=== PATIENT | male | born 1960 | race Two or more races ===

== ENCOUNTER 2024-10-26 10:09 | Outpatient (AMB) | payer MEDICAID, SELFPAY ==
[2024-10-26 10:31] VITALS: BP 126/80; PULSE 78; RESP 18; TEMP 36.4; O2SAT 94; BMI 40.0
--- NOTE | 2024-10-26 10:31 | ORTHONT_ITS ---
Vital signs 10/26/24 10:31 Height 1.68 m Height Method Stated Weight 112.973 kg Weight Measurement Method Standing Scale BMI 40.0 BP 126/80 Blood Pressure Source Automatic Cuff Blood Pressure Location Right Upper Arm Position Sitting Respiration 18 Pulse 78 Pulse Source Monitor Temp 97.5 F Temp Source Temporal Artery Scan Pulse Oximetry (%) 94 L Oxygen Delivery Method Room Air Med/Allergies Allergies & Medications Allergies No Known Allergies Allergy (Verified 10/26/24 10:32) Medication Reconciliation meloxicam 7.5 mg tablet 7.5 mg PO BID #45 tabs 11/04/23 [Rx Confirmed 10/26/24] amlodipine 5 mg tablet 5 mg PO QDAY 08/06/24 [History Confirmed 10/26/24] atorvastatin 20 mg tablet 20 mg PO QDAY 08/06/24 [History Confirmed 10/26/24] empagliflozin 10 mg tablet (Jardiance) 10 mg PO QAM 08/06/24 [History Confirmed 10/26/24] metformin 1,000 mg tablet 1,000 mg PO QDAY 08/06/24 [History Confirmed 10/26/24] semaglutide 14 mg tablet (Rybelsus) 14 mg PO QDAY 08/06/24 [History Confirmed 10/26/24] dulaglutide 1.5 mg/0.5 mL subcutaneous pen injector (Trulicity) 1.5 mg subcut QWEEK 10/26/24 [History Confirmed 10/26/24] Exam Exam Patient is in no acute distress and is cooperative with the examination today. Breathing is nonlabored. In no respiratory distress. Bilateral extremities were evaluated and demonstrates sensation intact to light touch. Palpable pedal pulses are present. No significant edema is present. Bilateral hips were examined. The patient has no pain with log roll of the hips. Internal rotation to 30 degrees and external rotation to 30 degrees is painless. Negative FADIR. The left knee was examined. The left knee is in [varus] alignment. Range of motion from [0-115] degrees. Knee is stable to varus and valgus as well as AP translation with <5mm. Patient has a [negative] McMurrays. There is [no] pain with patellofemoral compression and [no] crepitus noted. The knee is [tender] to palpation [medially]. The right knee was also examined. The right knee is in [varus] alignment. Range of motion from [0-120] degrees. Knee is stable to varus and valgus as well as AP translation with <5mm. Patient has a [negative] McMurrays. There is [no] pain with patellofemoral compression and [no] crepitus noted. The knee is [tender] to palpation [medially]. I reviewed x-rays from [facility] from both knees. This demonstrates significant tawf-sp-odqd arthritis medially. There are significant osteophytes and quite impressive varus deformity Assessment and Plan Problem List (1) Bilateral knee pain: Status: Acute Plan: Patient is a 64-year-old male with bilateral knee pain and bilateral knee arthritis. He is failed conservative treatment. He he has tried multiple injections, anti-inflammatories, injections, and has lost 25 pounds. He still has persistent pain. We thus discussed total knee replacement is a reasonable option. While both knees have severe pain, the left knee pain hurts him more and we would for start on the left side. The nature and purpose of the total knee replacement, alternative method(s) of treatment, the material risks involved, and the possibility of complications were fully explained to the patient. The patient does NOT have any of the following contraindications to TKA: - Active infection of the knee joint, OR - Active systemic bacteremia, OR - Active skin infection or open wound at surgical site, OR - Neuropathic arthritis, OR - Severe, rapidly progressive neurological disease, OR - Severe medical condition that makes risks of surgery outweigh the potential benefit The patient was told the most common risks and complications associated with a total knee replacement include, but are not limited to: blood clots in the leg, fatal pulmonary embolism, dislocation of the prosthesis, intraoperative and postoperative fractures of the femur or tibia, infection, failure of the prosthesis or grafting materials, complications from anesthesia, reactions to blood transfusions, postoperative leg length inequality, instability of the knee replacement, nerve damage or injury, vascular injury, delayed wound healing, infection, other injury or even . In addition, there are risks associated with anesthesia given during this operation. Also, the patient was told that after undergoing a total knee replacement there may still be persistent pain or disability. The patient was informed that the success of this operation in part depends upon the mechanical devices which are going to be implanted and that these devices can fail or malfunction, and may need to be repaired or replaced and there are no guarantees as to the longevity of this device or its parts and that it or its parts could fail prematurely. The patient was also notified that during the course of surgery, there may be a need to use bone graft from donors, and that any bone graft used will be carefully screened for communicable diseases, including AIDS, hepatitis, Gelacio-Creutzfeldt, or other diseases, but despite the screening procedures, there is a small chance that they could contract one of these diseases. Finally, the patient was asked to follow completely and fully with all advice and recommended treatments, and that recovery and ultimate outcome are affected by their compliance with recommended treatment. We discussed the risks, benefits and treatment alternatives, and the patient is interested in proceeding with surgery. We will try to set this up as expeditiously as possible. (2) Bilateral primary osteoarthritis of knee: Status: Acute Office Procedures GNS Level of Care Nursing/Assessment Patient Status: Established Patient Nursing Assessment/Reassesment: Medication Reconciliation, Update PMH in EMR and Vital Signs Coordination of Care: Complex Care and Chronic Disease 1-5, Education Complex Pt/Fam, Consent,records obtained, informed consent, Results/Orders obtained and Staff clarify orders Special Needs: Language special needs Established Patient Charge Established Patient Point Assignment: 95 Established Patient Point Charge: EP Level 3 (80-115) MA Intake Visit Data Collection New Patient or Established: Established Patient (seen at [facility] within 3 years) Reason for Visit:: PRE-OPT LT TKA Seen by Clinical Staff ONLY (RN/MA): No Verbal consent obtained for Telemed visit?: No 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 Required: Yes PCP or OBGYN visit in last 3 months: Yes Hx Now: No Do You Feel Safe at Home: Yes Authorities Contacted: N/A Questionairres Past Medical History Past Medical History Have you ever been diagnosed with any of the following: Respiratory Problems Smoking: No Smoking Exposure: No Subjective Visit Visit for: follow up visit and knee Immunization / Flu Flu Vaccine in the Last 12 Months: Yes Flu Vaccine Exclusion Criteria: Already Received History of Present Illness Chief complaint: PRE-OPT LT TKA Date of 1st surgery (if applicable): 11/01/2024 Patient is a 63-year-old Male who is well-known to me. He lives in the [facility] and I previously treated him over there. He has bilateral knee pain that is [id number]. He has significant varus arthritis. He reports the last injections helped for several months and he would like new ones. He has lost about 35 pounds since we last saw him. The left knee hurts him significantly more. He has tried antiinflammatories Pain Pain level (0-10): 8 Pain duration: ALL DAY Pain location: inside (medial), outside (lateral), anterior and posterior Pain quality: sharp, dull and aching Pain timing: night and increases with activity Associated signs & symptoms: numbness, weakness and stiffness Ambulatory data Ambulatory device: none Treatments Improvement with previous injections: No Improvement with PT: No Improvement with NSAIDS: no Review of Systems Review of Systems: All systems negative unless otherwise noted in HPI.
== END 2024-10-26 10:50 | disposition home or self-care (01) ==
PROVIDERS: Supervising Provider Orthopaedic Surgery Adult Reconstructive Orthopaedic Surgery; Visit Provider Orthopaedic Surgery Adult Reconstructive Orthopaedic Surgery
DX: M25.562 Pain in left knee (principal); M25.561 Pain in right knee; M17.0 Bilateral primary osteoarthritis of knee
CPT/HCPCS: 99213; G0463

== ENCOUNTER → 2024-10-26 | Outpatient (CLI) | payer MEDICAID, SELFPAY ==
--- NOTE | 2024-10-26 13:57 | XR_ITS ---
Examination: Bilateral knees 2 views Right lateral knee left lateral knee 2 views Bilateral axial knees single view TECHNIQUE: Bilateral AP knees standing single view, bilateral PA knees standing single view 30 degrees flexion Standing right lateral knee left lateral knee 2 views Bilateral axial knees single view total 5 views Exam date and time: April 25, 2025 1410 hours INDICATIONS: Bilateral knee pain several years FINDINGS: Moderate osteopenia Advanced narrowing [id number] medial joint spaces right and left knee Advanced bilateral osteoarthritis patellofemoral joints No fracture or dislocation involving either knee IMPRESSION: Advanced narrowing [id number] medial joint spaces right and left knee Advanced bilateral osteoarthritis patellofemoral joints
--- NOTE | 2024-10-26 15:30 | XR_ITS ---
Examination: CT left lower extremity, without contrast. 2-D sagittal reconstructions. 2-D coronal reconstructions. 3-D reconstructions. Date and time of exam:October 26, 2024 1440 hours INDICATIONS: Left knee pain one year, osteoarthritis CTDI: vol (mGy):12.2 DLP: (mGycm):880 Technique: Multiple 1.25 mm axial sections of the left lower extremity without intravenous contrast have been obtained. 2-D sagittal and coronal reconstructions have been obtained. 3-D reconstructions have been obtained. Low dose protocols were performed. One or more of the following dose reduction techniques were used; automated exposure control, adjustment of the mA and/or KV according to patient size, use of iterative reconstruction technique. Findings: Mild osteopenia Mild to moderate narrowing left hip joint No left hip fracture or hip dislocation Advanced tricompartment osteoarthritis left knee, significant narrowing and osteophyte formation or joint spaces No fracture or dislocation IMPRESSION: Advanced tricompartment osteoarthritis left knee
== END | disposition home or self-care (01) ==
PROVIDERS: Referring Provider Orthopaedic Surgery Adult Reconstructive Orthopaedic Surgery; Visit Provider Orthopaedic Surgery Adult Reconstructive Orthopaedic Surgery
DX: M17.0 Bilateral primary osteoarthritis of knee (principal); M25.862 Other specified joint disorders, left knee; M25.861 Other specified joint disorders, right knee
CPT/HCPCS: 73564; 73700

== ENCOUNTER 2024-11-01 08:30 | Day surgery (SDC) | payer MEDICAID, SELFPAY ==
[2024-10-29 09:06] VITALS: BMI 40.1
[2024-10-29 10:03] LABS: Basophils % (Auto) 1 % (0-2.5); Eosinophils # (Auto) 0.3 Thou/mm3 (0.0-0.5); Eosinophils % (Auto) 4 % (0-10); Hematocrit 49.9 % (41.0-53.0); Hemoglobin 17.6 g/dL (13.5-16.0); Immature Granulocytes % (Auto) 0 % (0-0); Immature Granulocytes Auto 0.02 Thou/mm3 (0.00-0.00); Lymphocytes % (Auto) 26 % (10-50); Mean Corpuscular HGB Conc 35.3 g/dl (31.0-37.0); Mean Corpuscular Hemoglobin 31.5 pg (25.0-35.0); Mean Corpuscular Volume 89 fL (80-100); Monocytes # (Auto) 0.6 Thou/mm3 (0.0-0.8); Monocytes % (Auto) 8 % (0-12); Neutrophils # (Auto) 4.6 Thou/mm3 (1.8-7.7); Neutrophils % (Auto) 61 % (37-80); Nucleated Red Blood Cell % 0 /100 WBC (0); Platelet Count 182 Thou/mm3 (140-440); Red Blood Count 5.59 Miln/mm3 (4.50-5.90); White Blood Count 7.5 Thou/mm3 (3.8-10.6)
[2024-10-29 10:12] LABS: Alanine Aminotransferase 37 U/L (10-49); Albumin, Serum 5.1 gm/dL (3.4-4.8); Albumin/Globulin Ratio 1.9 (1.2-2.2); Alkaline Phosphatase 90 U/L (46-116); Anion Gap 8 (7-16); Aspartate Amino Transferase 21 U/L (0-34); BUN/Creatinine Ratio 17 Ratio (12-20); Bilirubin,Total 2.9 mg/dL (0.3-1.2); Blood Urea Nitrogen 20 mg/dL (9-23); Calcium 9.8 mg/dL (8.3-10.6); Calcium (Corrected) 9.8 mg/dL (8.5-10.1); Carbon Dioxide 27.7 mMol/L (20.0-31.0); Chloride 103 mMol/L (98-107); Creatinine (Component) 1.2 mg/dL (0.6-1.3); Estimated Creatinine Clearance 73.4 mL/min (>60); Globulin 2.7 gm/dL (2.3-3.5); Glucose 105 mg/dL (74-106); INR 1.1 (0.9-1.3); Osmolality,Calculated 280 (275-295); Partial Thromboplastin Time 28.3 Seconds (22.0-36.0); Potassium 4.4 mMol/L (3.4-5.1); Prothrombin Time 11.7 Seconds (9.0-12.2); Sodium 139 mMol/L (136-145); Total Protein 7.8 gm/dL (5.7-8.2); eGFR > 60 See Note
--- NOTE | 2024-10-29 15:01 | SUR.PREOP ---
Cardiac records reviewed with Dr Araya.
[2024-11-01] VITALS (19 sets, daily range): BP systolic 118–165; BP diastolic 68–85; PULSE 82–103; RESP 12–24; TEMP 36.1–36.6; O2SAT 93–96; BMI 40.3; BMI 40.1
[2024-11-01] MEDS: RINGERS LACTATED 1000 ML 1,000 ML 20 ML IV (09:32)
[2024-11-01] MEDS: PREGABALIN 75 MG CAPSULE PO (09:33)
[2024-11-01] MEDS: MELOXICAM 7.5 MG TABLET PO (09:35)
[2024-11-01] MEDS: ACETAMINOPHEN 325 MG TABLET 650 MG PO ×2 (09:36→22:50)
--- NOTE | 2024-11-01 12:04 | SUR.OPER ---
Daughter updated on case status/progress via phone by Jenni LAURA at approx. 1205.
--- NOTE | 2024-11-01 12:31 | ESOP_ITS ---
Date of Procedure 11/01/24 Pre Op Diagnosis left knee osteoarthritis Post Op Diagnosis left knee osteoarthritis Procedure left total knee replacement Findings full thickness cartilage loss and osteophytes Procedure Description Indication: The patient is a 64 year old who has a long history of left knee pain. X-rays show degenerative arthritis involving the knee. Over the past several years the patient has had increasing pain, progressive limitation in function. He has failed conservative measures including activity modification, physical therapy, injections, anti-inflammatories, and assistive devices. After a lengthy discussion of the risks and benefits, the patient presents now for total knee replacement. The nature and purpose of the total knee replacement, alternative method(s) of treatment, the material risks involved, and the possibility of complications were fully explained to the patient. The patient was told the most common risks and complications associated with a total knee replacement include, but are not limited to blood clots in the leg, fatal pulmonary embolism, dislocation of the prosthesis, intraoperative and postoperative fractures of the femur or tibia, infection, failure of the prosthesis or grafting materials, complications from anesthesia, reactions to blood transfusions, postoperative leg length inequality, instability of the knee replacement, nerve damage or injury, vascular injury, delayed wound healing, infections, other injury or even . In addition, there are risks associated with anesthesia given during this operation, temporary or permanent numbness on the skin lateral to the incision can be a complication unique to total knee surgery, and kneeling can be painful after knee replacement surgery. Also, the patient was told that after undergoing a total knee replacement there may still be pain or disability. We discussed with the patient that we will be using a robot-assisted technology. We discussed that there is a possibility of converting to manual instrumentation. The patient was informed that the success of this operation in part depends upon the mechanical devices which are going to be implanted and that these devices can fail or malfunction, and may need to be repaired or replaced and there are no guarantees as to the longevity of this device or its part and that it or its parts could fail prematurely. Finally, the patient was asked to follow completely and fully with all advice and recommended treatments, and that recovery and ultimate outcome are affected by their compliance with recommended treatment. Surgical technique: Patient was marked and consented in the pre-operative area. The patient was brought to the operating room and placed on the operating table in a supine position. Prior to positioning, a timeout procedure was performed between the surgeon, the anesthesiologist, and the nursing staff where the patient and the operative side were identified and confirmed. After adequate general anesthetic was obtained, the left lower extremity was prepped and draped in the usual sterile fashion. A weight based dose of Cefazolin were administered within 1 hour prior to incision. The robot was preregistered and calirated before the incision. The extremity was exsanguinated with an esmarch badge and tourniquet inflated to 250mmHg. A midline incision was made. A median parapatellar arthrotomy was made. The patella was subluxed laterally. A medial release was performed to expose the medial tibia. His femoral and tibial pins were placed through an intra incisional manner for both cases. Every effort was made to ensure that the distalmost aspect of the pin was hung in the second cortex. The arrays were then tightened several times to ensure that it was fixed for the remainder of the case. Both femoral and tibial checkpoints were then placed. We then went through the registration process of the bone. We then assessed the knee deformity and attempted to correct it. We also used the robot to aid in judging laxity in both extension and flexion. Final based on laxity and alignment we changed the preoperative assessment to obtain proper proper implant positioning and to correct deformity. Attention was then placed to the tibia. We made a tibial cut using the robot ensuring that both the MCL and the patella tendon were protected with retractors. We then went to the femur and made the posterior cut followed by the anterior cut and the anterior chamfer. The bone was then removed and we made a distal femur cut and a posterior chamfer cut. We verified all cuts. A trial reduction was performed with a size 5 femoral component and a size 5 keeled tibial component. The patella tracked centrally, and no lateral re tinacular release was necessary. The trial implants were removed. The arrays, pins, and checkpoints were all removed. We performed a verification that all pins were removed. The cut bone surfaces were lavaged. A size 5 left femoral component, a size5 keeled tibial component were impacted into position. The knee was felt to be well balanced in the sagittal and coronal plane. The final [2x12] mm cruciate- substituting articular insert was impacted into the tibial tray. The knee was brought out to full extension, flexed up to 120 degrees. It was stable to varus and valgus stress and appropriately balanced in flexion and extension. The wounds were copiously irrigated following deflation of tourniquet. The medial retinaculum was reapproximated with #1 vicryl and quill. The subcutaneous tissues were closed with 0 and 2-0 interrupted Vicryl. The skin was closed with 3-0 Monofilament V loc suture. A sterile dressing was applied. The patient was transferred to a bed and brought to recovery in stable condition. The patient tolerated the procedure well. There were no intraoperative complications. Sponge and needle counts were correct times 2. As the attending surgeon, I attest I was present and performed the entire operation. Grafts/Implants Size 5 CR Femur Size 5 Tibia 11mm poly CS Anesthesia GETA Implants jacobo Pathology / specimen None Pathology comment: none Estimated Blood Loss 150 Disposition same day Surgeon Neil Zamora MD Surgical Staff Operation Date: 11/01/24 13:00 Case Staff Anesthesiologist: Edson Araya RNleather roller: Beatriz Astudillo
--- NOTE | 2024-11-01 12:34 | XR_ITS ---
Examination: Right knee 2 views Technique one AP lateral right knee 2 views Exam date and time: November 01, 2024 at 1249 hours INDICATIONS: Postop knee replacement. FINDINGS: Total right knee arthroplasty. Satisfactory alignment Moderate osteopenia No fracture IMPRESSION: Total right knee arthroplasty with satisfactory alignment
--- NOTE | 2024-11-01 12:36 | SUR.PHASEI ---
pt received from OR in recovery bay 1. pt asleep but responds to voice, breathing unlabored on 8l oxymask, nasal area in place. v/s stable. pt dressing to left lower extremity cdi. report received from Dr. Araya and Joaquín LAURA.
--- NOTE | 2024-11-01 14:17 | SUR.PHASEII ---
pt able to tolerate oral fluids without difficulty swallowing or nausea/vomiting.
--- NOTE | 2024-11-01 17:00 | SUR.PHASEII ---
pt awake and alert, breathing unlabored on 2l nc. v/s stable. pt dressing to left lower extremity cdi. report called to Davina LAURA. pt will be transferred to room at this time.
[2024-11-02] VITALS: BP 156/82; PULSE 102; RESP 17; TEMP 36.2; O2SAT 95
[2024-11-02 04:00] VITALS: BP 108/79; PULSE 105; RESP 18; TEMP 36.5; O2SAT 96
[2024-11-02] MEDS: ACETAMINOPHEN 325 MG TABLET 650 MG PO (05:52)
[2024-11-02 08:00] VITALS: BP 148/84; PULSE 88; RESP 17; TEMP 36.6; O2SAT 95
[2024-11-02] MEDS: oxyCODONE HCL 5 MG IR TAB 10 MG PO (10:14)
[2024-11-02 12:00] VITALS: BP 157/86; PULSE 98; RESP 18; TEMP 36.8; O2SAT 94
--- NOTE | 2024-11-02 13:00 | PC.NURSE ---
Dressing removed from left knee, incision well approximated, instructions provided to care for the surgical incision, patient and family verbalized understanding.
--- NOTE | 2024-11-03 13:42 | ESPR_ITS ---
Documentation for date of: 11/03/24 POST ANESTHESIA NOTE: Patient had GETA and L adductor block for L TKA on 11/01/24. I just called and spoke with him on the phone via catalytic case operator and he denied any problems from anesthesia. He reported he did have fever yesterday and went to ER and was given medication and discharged. I educated him that fever could be sign of surgical site infection and if he continues to have fever, he should consider going to ER or follow up with his surgeon. He understood and had no further questions for me and then hung up. Edson Araya MD Anesthesia Progress Note Progress Note Most recent Vital Signs: Last Vital Signs Temp 98.3 F 11/02/24 12:00 Pulse 98 11/02/24 12:00 Resp 18 11/02/24 12:00 BP 157/86 H 11/02/24 12:00 Pulse Ox 94 L 11/02/24 12:00 O2 Del Method Room Air 11/02/24 12:00 O2 Flow Rate 2 11/02/24 12:00
== END 2024-11-02 13:10 | disposition home or self-care (01) ==
LOC: S2EX 14:21 → S3SX 17:03
PROVIDERS: Anesthesiology; Referring Provider Orthopaedic Surgery Adult Reconstructive Orthopaedic Surgery; Visit Provider Orthopaedic Surgery Adult Reconstructive Orthopaedic Surgery
PROC: (CPT 27447; principal; 2024-11-01 12:45)
DX: M17.12 Unilateral primary osteoarthritis, left knee (principal)
CPT/HCPCS: 27447; 20985; 36415; 73560; 80053; 85025; 85610; 85730; 87081; 97162; A4217; C1713; C1776; J0171; J0690; J1100; J1885; J2250; J2405; J2704; J2795; J3010; J3490; J7030; J7120; P9045; A4648; A4649; A9270; J1805

== ENCOUNTER 2024-11-16 10:55 | Outpatient (AMB) | payer MEDICAID, SELFPAY ==
--- NOTE | 2024-11-16 11:20 | ORTHONT_ITS ---
Vital signs 11/16/24 11:30 Height 1.68 m Height Method Stated Weight 109.939 kg Weight Measurement Method Standing Scale BMI 38.9 BP 143/81 H Blood Pressure Source Automatic Cuff Blood Pressure Location Left Upper Arm Position Sitting Respiration 19 Pulse 93 Pulse Source Monitor Temp 97.0 F Temp Source Temporal Artery Scan Pulse Oximetry (%) 93 L Oxygen Delivery Method Room Air Med/Allergies Allergies & Medications Allergies No Known Allergies Allergy (Verified 11/16/24 11:31) Medication Reconciliation amlodipine 5 mg tablet 10 mg PO QDAY 08/06/24 [History Confirmed 11/16/24] atorvastatin 20 mg tablet 20 mg PO QDAY 08/06/24 [History Confirmed 11/16/24] metformin 1,000 mg tablet 1,000 mg PO BID 08/06/24 [History Confirmed 11/16/24] dulaglutide 1.5 mg/0.5 mL subcutaneous pen injector (Trulicity) 1.5 mg subcut QWEEK 10/26/24 [History Confirmed 11/16/24] empagliflozin 10 mg tablet (Jardiance) 10 mg PO QAM 10/29/24 [History Confirmed 11/16/24] losartan 50 mg tablet 50 mg PO QDAY 10/29/24 [History Confirmed 11/16/24] semaglutide 14 mg tablet (Rybelsus) 14 mg PO QDAY 10/29/24 [History Confirmed 11/16/24] aspirin 81 mg tablet,delayed release 81 mg PO BID #60 tabs 11/01/24 [Rx Confirmed 11/16/24] doxycycline hyclate 100 mg tablet 100 mg PO BID #14 tabs 11/01/24 [Rx Confirmed 11/16/24] gabapentin 300 mg capsule 300 mg PO .qhs #30 caps 11/01/24 [Rx Confirmed 11/16/24] oxycodone 5 mg tablet 5 mg PO Q6H PRN pain #28 tabs 11/01/24 [Rx Confirmed 11/16/24] sennosides 8.6 mg-docusate sodium 50 mg tablet (Senna-S) 1 tab-cap PO QDAY #30 tabs 11/01/24 [Rx Confirmed 11/16/24] oxycodone 5 mg tablet 5 mg PO Q6H PRN pain #28 tabs 11/11/24 [Rx Confirmed 11/16/24] acetaminophen 500 mg tablet (Acetaminophen Extra Strength) 1,000 mg (2 x 500 mg) PO Q6H PRN pain #90 tabs 11/16/24 [Rx Confirmed 11/16/24] cyclobenzaprine 5 mg tablet 5 mg PO QHS PRN muscle spasm #60 tabs 11/16/24 [Rx Confirmed 11/16/24] Exam Exam Patient is in no acute distress and is cooperative with the examination today. Breathing is nonlabored. In no respiratory distress. Bilateral extremities were evaluated and demonstrates sensation intact to light touch. Palpable pedal pulses are present. No significant edema is present. Bilateral hips were examined. The patient has no pain with log roll of the hips. Internal rotation to 30 degrees and external rotation to 30 degrees is painless. Negative FADIR. The left knee was examined. The left knee is in [varus] alignment. Range of motion from [0-115] degrees. Knee is stable to varus and valgus as well as AP translation with <5mm. Patient has a [negative] McMurrays. There is [no] pain with patellofemoral compression and [no] crepitus noted. The knee is [tender] to palpation [medially]. The right knee was also examined. The right knee is in [varus] alignment. Range of motion from [0-120] degrees. Knee is stable to varus and valgus as well as AP translation with <5mm. Patient has a [negative] McMurrays. There is [no] pain with patellofemoral compression and [no] crepitus noted. The knee is [tender] to palpation [medially]. I reviewed x-rays from [facility] from both knees. This demonstrates significant [id number] arthritis medially. There are significant osteophytes and quite impressive varus deformity Assessment and Plan Problem List (1) Bilateral knee pain: Status: Acute Plan: Patient is a 64-year-old male with bilateral knee pain and bilateral knee arthritis. He is doing well status post left total knee replacement. She continue to work with physical therapy. We will see him with new x-rays at the next visit. (2) Bilateral primary osteoarthritis of knee: Status: Acute Office Procedures GNS Level of Care Nursing/Assessment Patient Status: Established Patient Nursing Assessment/Reassesment: Medication Reconciliation, Update PMH in EMR and Vital Signs Coordination of Care: Complex Care and Chronic Disease 1-5, Education Complex Pt/Fam, Consent,records obtained, informed consent, Lab and Imaging orders, Results/Orders obtained and Staff clarify orders Special Needs: Language special needs Established Patient Charge Established Patient Point Assignment: 110 Established Patient Point Charge: EP Level 3 (80-115) MA Intake Visit Data Collection New Patient or Established: Established Patient (seen at [facility] within 3 years) Reason for Visit:: TKA F/U Seen by Clinical Staff ONLY (RN/MA): No Pneumatic System Conveyor Operator Required: Yes PCP or OBGYN visit in last 3 months: Yes Hx Now: No Do You Feel Safe at Home: Yes Authorities Contacted: N/A Questionairres Past Medical History Past Medical History Have you ever been diagnosed with any of the following: Neurological Problems Seizures: No Cardiology Problems Hypercholesterolemia: Yes Congestive Heart Failure: No Hypertension: Yes Respiratory Problems Chronic Obstructive Pulmonary Disease (COPD): No Sleep Apnea: Yes Smoking: No Smoking Exposure: No Stomache/Intestinal Problems Hepatitis: No Obesity: Yes Genital/Urinary Problems Renal Disease: No Kidney Stones: Yes Musculoskeletal Problems Arthritis: Yes Endocrine Problems Diabetes Mellitus Type 1: No Diabetes Mellitus Type 2: Yes Psychologic Problems Depression: Yes (no meds) Anxiety: Yes Other Problems Hospitalization: Yes Shingles: No Blood Transfusions: No Blood Transfusion Reaction: No Anesthesia Reactions: No Chicken Pox: Yes Measles: Yes Cancer: No Subjective Visit Visit for: follow up visit and knee Immunization / Flu Flu Vaccine in the Last 12 Months: Yes Flu Vaccine Exclusion Criteria: Already Received History of Present Illness Chief complaint: PRE-OPT LT TKA Date of 1st surgery (if applicable): 11/01/2024 Patient is a 63-year-old Male who is well-known to me. He is doing well and has minimal pain,. Pain Pain level (0-10): 8 Pain duration: ALL DAY Pain location: inside (medial), outside (lateral), anterior and posterior Pain quality: aching Pain timing: increases with activity Associated signs & symptoms: none Ambulatory data Ambulatory device: walker Treatments Improvement with previous injections: No Improvement with PT: No Improvement with NSAIDS: no Review of Systems Review of Systems: All systems negative unless otherwise noted in HPI.
[2024-11-16 11:30] VITALS: BP 143/81; PULSE 93; RESP 19; TEMP 36.1; O2SAT 93; BMI 38.9
== END 2024-11-16 11:30 | disposition home or self-care (01) ==
LOC: HODSRG 10:55
PROVIDERS: Supervising Provider Orthopaedic Surgery Adult Reconstructive Orthopaedic Surgery; Visit Provider Orthopaedic Surgery Adult Reconstructive Orthopaedic Surgery
DX: M25.561 Pain in right knee (principal); M25.562 Pain in left knee; M17.0 Bilateral primary osteoarthritis of knee; I10 Essential (primary) hypertension; E78.00 Pure hypercholesterolemia, unspecified
CPT/HCPCS: 99213; G0463

== ENCOUNTER 2024-12-28 13:01 | Outpatient (AMB) | payer MEDICAID, SELFPAY ==
--- NOTE | 2024-12-28 13:12 | ORTHONT_ITS ---
Vital signs 12/28/24 13:13 Height 1.68 m Height Method Stated Weight 110.45 kg Weight Measurement Method Standing Scale BMI 39.1 BP 146/81 H Blood Pressure Source Automatic Cuff Blood Pressure Location Left Upper Arm Position Sitting Respiration 18 Pulse 95 Pulse Source Monitor Temp 97.2 F Temp Source Temporal Artery Scan Pulse Oximetry (%) 90 L Oxygen Delivery Method Room Air Med/Allergies Allergies & Medications Allergies No Known Allergies Allergy (Verified 12/28/24 13:14) Medication Reconciliation amlodipine 5 mg tablet 10 mg PO QDAY 08/06/24 [History Confirmed 12/28/24] atorvastatin 20 mg tablet 20 mg PO QDAY 08/06/24 [History Confirmed 12/28/24] metformin 1,000 mg tablet 1,000 mg PO BID 08/06/24 [History Confirmed 12/28/24] dulaglutide 1.5 mg/0.5 mL subcutaneous pen injector (Trulicity) 1.5 mg subcut QWEEK 10/26/24 [History Confirmed 12/28/24] empagliflozin 10 mg tablet (Jardiance) 10 mg PO QAM 10/29/24 [History Confirmed 12/28/24] losartan 50 mg tablet 50 mg PO QDAY 10/29/24 [History Confirmed 12/28/24] semaglutide 14 mg tablet (Rybelsus) 14 mg PO QDAY 10/29/24 [History Confirmed 12/28/24] aspirin 81 mg tablet,delayed release 81 mg PO BID #60 tabs 11/01/24 [Rx C onfirmed 12/28/24] doxycycline hyclate 100 mg tablet 100 mg PO BID #14 tabs 11/01/24 [Rx Confirmed 12/28/24] gabapentin 300 mg capsule 300 mg PO .qhs #30 caps 11/01/24 [Rx Confirmed 12/28/24] oxycodone 5 mg tablet 5 mg PO Q6H PRN pain #28 tabs 11/01/24 [Rx Confirmed 12/28/24] sennosides 8.6 mg-docusate sodium 50 mg tablet (Senna-S) 1 tab-cap PO QDAY #30 tabs 11/01/24 [Rx Confirmed 12/28/24] oxycodone 5 mg tablet 5 mg PO Q6H PRN pain #28 tabs 01/23/25 [Rx Confirmed 12/28/24] acetaminophen 500 mg tablet (Acetaminophen Extra Strength) 1,000 mg (2 x 500 mg) PO Q6H PRN pain #90 tabs 11/16/24 [Rx Confirmed 12/28/24] cyclobenzaprine 5 mg tablet 5 mg PO QHS PRN muscle spasm #60 tabs 12/28/24 [Rx] Exam Exam Patient is in no acute distress and is cooperative with the examination today. Breathing is nonlabored. In no respiratory distress. Bilateral extremities were evaluated and demonstrates sensation intact to light touch. Palpable pedal pulses are present. No significant edema is present. Bilateral hips were examined. The patient has no pain with log roll of the hips. Internal rotation to 30 degrees and external rotation to 30 degrees is painless. Negative FADIR. The left knee was examined. ROM 0-105,. INcision c/d/i I reviewed x-rays from [facility] from both knees. L knee xrays demonstrate a l TKA in good position and aliognment Assessment and Plan Problem List (1) Bilateral knee pain: Status: Acute Plan: Patient is a 64-year-old male with bilateral knee pain and bilateral knee arthritis. He is doing well status post left total knee replacement. he should continue to work with physical therapy. We will see him in apporxiately 3 months. (2) Bilateral primary osteoarthritis of knee: Status: Acute Office Procedures GNS Level of Care Nursing/Assessment Patient Status: Established Patient Nursing Assessment/Reassesment: Medication Reconciliation, Update PMH in EMR and Vital Signs Coordination of Care: Complex Care and Chronic Disease 1-5, Education Complex Pt/Fam, Consent,records obtained, informed consent, Results/Orders obtained and Staff clarify orders Special Needs: Language special needs Established Patient Charge Established Patient Point Assignment: 95 Established Patient Point Charge: EP Level 3 (80-115) MA Intake Visit Data Collection New Patient or Established: Established Patient (seen at [facility] within 3 years) Reason for Visit:: 6 WEEK FOLLOW UP Seen by Clinical Staff ONLY (RN/MA): No Billet Cutter Required: Yes PCP or OBGYN visit in last 3 months: Yes Hx Now: No Do You Feel Safe at Home: Yes Authorities Contacted: N/A Questionairres Past Medical History Past Medical History Have you ever been diagnosed with any of the following: Neurological Problems Seizures: No Cardiology Problems Hypercholesterolemia: Yes Congestive Heart Failure: No Hypertension: Yes Respiratory Problems Chronic Obstructive Pulmonary Disease (COPD): No Sleep Apnea: Yes Smoking: No Smoking Exposure: No Stomache/Intestinal Problems Hepatitis: No Obesity: Yes Genital/Urinary Problems Renal Disease: No Kidney Stones: Yes Musculoskeletal Problems Arthritis: Yes Endocrine Problems Diabetes Mellitus Type 1: No Diabetes Mellitus Type 2: Yes Psychologic Problems Depression: Yes (no meds) Anxiety: Yes Other Problems Hospitalization: Yes Shingles: No Blood Transfusions: No Blood Transfusion Reaction: No Anesthesia Reactions: No Chicken Pox: Yes Measles: Yes Cancer: No Subjective Visit Visit for: follow up visit and knee Immunization / Flu Flu Vaccine in the Last 12 Months: Yes Flu Vaccine Exclusion Criteria: Already Received History of Present Illness Chief complaint: PRE-OPT LT TKA Date of 1st surgery (if applicable): 11/01/2024 Patient is a 63-year-old Male who is well-known to me. He is doing well and has minimal pain. He is do9ing well s/p L TKA. He would like to get his R knee replaced in the fall. Pain Pain level (0-10): 8 Pain duration: ALL DAY Pain location: inside (medial), outside (lateral), anterior and posterior Pain quality: aching Pain timing: increases with activity Associated signs & symptoms: none Ambulatory data Ambulatory device: walker Treatments Improvement with previous injections: No Improvement with PT: No Improvement with NSAIDS: no Review of Systems Review of Systems: All systems negative unless otherwise noted in HPI.
[2024-12-28 13:13] VITALS: BP 146/81; PULSE 95; RESP 18; TEMP 36.2; O2SAT 90; BMI 39.1
== END 2024-12-28 13:26 | disposition home or self-care (01) ==
LOC: HODSRG 13:01
PROVIDERS: Supervising Provider Orthopaedic Surgery Adult Reconstructive Orthopaedic Surgery; Visit Provider Orthopaedic Surgery Adult Reconstructive Orthopaedic Surgery
DX: M17.0 Bilateral primary osteoarthritis of knee (principal); I10 Essential (primary) hypertension; E78.00 Pure hypercholesterolemia, unspecified; G47.30 Sleep apnea, unspecified
CPT/HCPCS: 99213; G0463

== ENCOUNTER 2025-06-28 10:16 | Outpatient (AMB) | payer MEDICARE, MEDICAID, SELFPAY ==
--- NOTE | 2025-06-28 10:33 | PD.ORTHCLVIS ---
Med/Allergies Allergies & Medications Allergies No Known Allergies Allergy (Verified 12/28/24 13:14) Exam Exam Patient is in no acute distress and is cooperative with the examination today. Breathing is nonlabored. In no respiratory distress. Bilateral extremities were evaluated and demonstrates sensation intact to light touch. Palpable pedal pulses are present. No significant edema is present. Bilateral hips were examined. The patient has no pain with log roll of the hips. Internal rotation to 30 degrees and external rotation to 30 degrees is painless. Negative FADIR. The left knee was examined. ROM 0-105,. INcision c/d/i I reviewed x-rays from [facility] from both knees. L knee xrays demonstrate a l TKA in good position and alignment. Patient has severe arthritis of his right knee with complete joint space narrowing medially. Assessment and Plan Problem List (1) Bilateral knee pain: Status: Acute Plan: Patient is a 64-year-old male with bilateral knee pain and bilateral knee arthritis. He is doing well status post left total knee replacement. he should continue to work with physical therapy. He would like to hold off on surgery for now (2) Bilateral primary osteoarthritis of knee: Status: Acute Advanced Care Planning Discussion Advance care planning discussed with:: patient MA Intake Visit Data Collection New Patient or Established: Established Patient (seen at [facility] within 3 years) Reason for Visit:: 6 WEEK FOLLOW UP Seen by Clinical Staff ONLY (RN/MA): No Credit Verification Clerk Required: Yes PCP or OBGYN visit in last 3 months: Yes Hx Now: No Do You Feel Safe at Home: Yes Authorities Contacted: N/A Questionairres Past Medical History Past Medical History Have you ever been diagnosed with any of the following: Neurological Problems Seizures: No Cardiology Problems Hypercholesterolemia: Yes Congestive Heart Failure: No Hypertension: Yes Respiratory Problems Chronic Obstructive Pulmonary Disease (COPD): No Sleep Apnea: Yes Smoking: No Smoking Exposure: No Stomache/Intestinal Problems Hepatitis: No Obesity: Yes Genital/Urinary Problems Renal Disease: No Kidney Stones: Yes Musculoskeletal Problems Arthritis: Yes Endocrine Problems Diabetes Mellitus Type 1: No Diabetes Mellitus Type 2: Yes Psychologic Problems Depression: Yes (no meds) Anxiety: Yes Other Problems Hospitalization: Yes Shingles: No Blood Transfusions: No Blood Transfusion Reaction: No Anesthesia Reactions: No Chicken Pox: Yes Measles: Yes Cancer: No Subjective Visit Visit for: follow up visit and knee Immunization / Flu Flu Vaccine in the Last 12 Months: Yes Flu Vaccine Exclusion Criteria: Already Received History of Present Illness Chief complaint: PRE-OPT LT TKA Date of 1st surgery (if applicable): 11/01/2024 Patient is a 63-year-old Male who is well-known to me. He is doing well and has minimal pain. He is doing well s/p L TKA. He would like to get his R knee replaced now. He has failed conservative treatment including multiple NSAIDs, and injections as well as home exercises. Pain Pain level (0-10): 8 Pain duration: ALL DAY Pain location: inside (medial), outside (lateral), anterior and posterior Pain quality: aching Pain timing: increases with activity Associated signs & symptoms: none Ambulatory data Ambulatory device: walker Treatments Improvement with previous injections: No Improvement with PT: No Improvement with NSAIDS: no Review of Systems Review of Systems: All systems negative unless otherwise noted in HPI.
--- NOTE | 2025-06-28 10:46 | ORTHONT_ITS ---
Vital signs 06/28/25 10:47 Height 1.68 m Height Method Stated Weight 114.872 kg Weight Measurement Method Standing Scale BMI 40.6 BP 173/93 H Blood Pressure Source Automatic Cuff Blood Pressure Location Left Upper Arm Position Sitting Respiration 18 Pulse 76 Pulse Source Monitor Temp 98.0 F Temp Source Temporal Artery Scan Pulse Oximetry (%) 93 L Oxygen Delivery Method Room Air Med/Allergies Allergies & Medications Allergies No Known Allergies Allergy (Verified 06/28/25 10:50) Medication Reconciliation amlodipine 5 mg tablet 10 mg PO QDAY 08/06/24 [History Confirmed 06/28/25] atorvastatin 20 mg tablet 20 mg PO QDAY 08/06/24 [History Confirmed 06/28/25] metformin 1,000 mg tablet 1,000 mg PO BID 08/06/24 [History Confirmed 06/28/25] dulaglutide 1.5 mg/0.5 mL subcutaneous pen injector (Trulicity) 1.5 mg subcut QWEEK 10/26/24 [History Confirmed 06/28/25] empagliflozin 10 mg tablet (Jardiance) 10 mg PO QAM 10/29/24 [History Confirmed 06/28/25] losartan 50 mg tablet 50 mg PO QDAY 10/29/24 [History Confirmed 06/28/25] semaglutide 14 mg tablet (Rybelsus) 14 mg PO QDAY 10/29/24 [History Confirmed 06/28/25] aspirin 81 mg tablet,delayed release 81 mg PO BID #60 tabs 11/01/24 [Rx Confirmed 06/28/25] doxycycline hyclate 100 mg tablet 100 mg PO BID #14 tabs 11/01/24 [Rx Confirmed 06/28/25] gabapentin 300 mg capsule 300 mg PO .qhs #30 caps 11/01/24 [Rx Confirmed 06/28/25] oxycodone 5 mg tablet 5 mg PO Q6H PRN pain #28 tabs 11/01/24 [Rx Confirmed 06/28/25] sennosides 8.6 mg-docusate sodium 50 mg tablet (Senna-S) 1 tab-cap PO QDAY #30 tabs 11/01/24 [Rx Confirmed 06/28/25] oxycodone 5 mg tablet 5 mg PO Q6H PRN pain #28 tabs 11/11/24 [Rx Confirmed 06/28/25] acetaminophen 500 mg tablet (Acetaminophen Extra Strength) 1,000 mg (2 x 500 mg) PO Q6H PRN pain #90 tabs 11/16/24 [Rx Confirmed 06/28/25] cyclobenzaprine 5 mg tablet 5 mg PO QHS PRN muscle spasm #60 tabs 12/28/24 [Rx Confirmed 06/28/25] meloxicam 7.5 mg tablet 7.5 mg PO QDAY #45 tabs 06/28/25 [Rx Confirmed 06/28/25] Assessment and Plan Problem List (1) Bilateral knee pain: Status: Acute (2) Bilateral primary osteoarthritis of knee: Status: Acute Advanced Care Planning Discussion Advance care planning discussed with:: patient Office Procedures GNS Level of Care Nursing/Assessment Patient Status: Established Patient Nursing Assessment/Reassesment: Medication Reconciliation, Update PMH in EMR and Vital Signs Coordination of Care: Complex Care and Chronic Disease 1-5, Education Complex Pt/Fam, Consent,records obtained, informed consent, Results/Orders obtained and Staff clarify orders Special Needs: Language special needs Established Patient Charge Established Patient Point Assignment: 95 Established Patient Point Charge: EP Level 3 (80-115) MA Intake Visit Data Collection New Patient or Established: Established Patient (seen at [facility] within 3 years) Reason for Visit:: FOLLOW UP TKA/DENTAL CLEARANCE FORM Seen by Clinical Staff ONLY (RN/MA): No Special Education Bus Driver Required: Yes PCP or OBGYN visit in last 3 months: Yes Hx Now: No Do You Feel Safe at Home: Yes Authorities Contacted: N/A Questionairres Past Medical History Past Medical History Have you ever been diagnosed with any of the following: Neurological Problems Seizures: No Cardiology Problems Hypercholesterolemia: Yes Congestive Heart Failure: No Hypertension: Yes Respiratory Problems Chronic Obstructive Pulmonary Disease (COPD): No Sleep Apnea: Yes Smoking: No Smoking Exposure: No Stomache/Intestinal Problems Hepatitis: No Obesity: Yes Genital/Urinary Problems Renal Disease: No Kidney Stones: Yes Musculoskeletal Problems Arthritis: Yes Endocrine Problems Diabetes Mellitus Type 1: No Diabetes Mellitus Type 2: Yes Psychologic Problems Depression: Yes (no meds) Anxiety: Yes Other Problems Hospitalization: Yes Shingles: No Blood Transfusions: No Blood Transfusion Reaction: No Anesthesia Reactions: No Chicken Pox: Yes Measles: Yes Cancer: No Subjective Visit Visit for: follow up visit and knee Immunization / Flu Flu Vaccine in the Last 12 Months: Yes Flu Vaccine Exclusion Criteria: Already Received History of Present Illness Date of 1st surgery (if applicable): 11/01/2024 Pain Pain level (0-10): 6 Ambulatory data Ambulatory device: none Treatments Improvement with previous injections: No Improvement with PT: No Improvement with NSAIDS: no Review of Systems Review of Systems: All systems negative unless otherwise noted in HPI.
[2025-06-28 10:47] VITALS: BP 173/93; PULSE 76; RESP 18; TEMP 36.7; O2SAT 93; BMI 40.6
== END 2025-06-28 10:47 | disposition home or self-care (01) ==
PROVIDERS: Supervising Provider Orthopaedic Surgery Adult Reconstructive Orthopaedic Surgery; Visit Provider Orthopaedic Surgery Adult Reconstructive Orthopaedic Surgery
DX: M25.562 Pain in left knee (principal); M25.561 Pain in right knee; M17.0 Bilateral primary osteoarthritis of knee; Z96.652 Presence of left artificial knee joint; I10 Essential (primary) hypertension; E78.00 Pure hypercholesterolemia, unspecified; G47.30 Sleep apnea, unspecified; E11.9 Type 2 diabetes mellitus without complications; E66.9 Obesity, unspecified; Z68.41 Body mass index [BMI] 40.0-44.9, adult
CPT/HCPCS: 99213; G0463

== ENCOUNTER 2025-07-14 14:21 | Outpatient (AMB) | payer MEDICARE, MEDICAID, SELFPAY ==
--- NOTE | 2025-07-14 14:32 | ORTHONT_ITS ---
Vital signs 07/14/25 14:38 Height 1.68 m Height Method Stated Weight 116.573 kg Weight Measurement Method Standing Scale BMI 41.3 BP 167/91 H Blood Pressure Source Automatic Cuff Blood Pressure Location Left Upper Arm Position Sitting Respiration 19 Pulse 90 Pulse Source Monitor Temp 98.1 F Temp Source Temporal Artery Scan Pulse Oximetry (%) 95 Oxygen Delivery Method Room Air Med/Allergies Allergies & Medications Allergies No Known Allergies Allergy (Verified 07/14/25 14:39) Medication Reconciliation amlodipine 5 mg tablet 10 mg PO QDAY 08/06/24 [History Confirmed 07/14/25] atorvastatin 20 mg tablet 20 mg PO QDAY 08/06/24 [History Confirmed 07/14/25] metformin 1,000 mg tablet 1,000 mg PO BID 08/06/24 [History Confirmed 07/14/25] dulaglutide 1.5 mg/0.5 mL subcutaneous pen injector (Trulicity) 1.5 mg subcut QWEEK 10/26/24 [History Confirmed 07/14/25] empagliflozin 10 mg tablet (Jardiance) 10 mg PO QAM 10/29/24 [History Confirmed 07/14/25] losartan 50 mg tablet 50 mg PO QDAY 10/29/24 [History Confirmed 07/14/25] semaglutide 14 mg tablet (Rybelsus) 14 mg PO QDAY 10/29/24 [History Confirmed 07/14/25] aspirin 81 mg tablet,delayed release 81 mg PO BID #60 tabs 11/01/24 [Rx Co nfirmed 07/14/25] doxycycline hyclate 100 mg tablet 100 mg PO BID #14 tabs 11/01/24 [Rx Confirmed 07/14/25] gabapentin 300 mg capsule 300 mg PO .qhs #30 caps 11/01/24 [Rx Confirmed 07/14/25] oxycodone 5 mg tablet 5 mg PO Q6H PRN pain #28 tabs 11/01/24 [Rx Confirmed 07/14/25] sennosides 8.6 mg-docusate sodium 50 mg tablet (Senna-S) 1 tab-cap PO QDAY #30 tabs 11/01/24 [Rx Confirmed 07/14/25] oxycodone 5 mg tablet 5 mg PO Q6H PRN pain #28 tabs 01/23/25 [Rx Confirmed 07/14/25] acetaminophen 500 mg tablet (Acetaminophen Extra Strength) 1,000 mg (2 x 500 mg) PO Q6H PRN pain #90 tabs 11/16/24 [Rx Confirmed 07/14/25] cyclobenzaprine 5 mg tablet 5 mg PO QHS PRN muscle spasm #60 tabs 12/28/24 [Rx Confirmed 07/14/25] meloxicam 7.5 mg tablet 7.5 mg PO QDAY #45 tabs 06/28/25 [Rx Confirmed 07/14/25] Exam Exam Patient is in no acute distress and is cooperative with the examination today. Breathing is nonlabored. In no respiratory distress. Bilateral extremities were evaluated and demonstrates sensation intact to light touch. Palpable pedal pulses are present. No significant edema is present. Bilateral hips were examined. The patient has no pain with log roll of the hips. Internal rotation to 30 degrees and external rotation to 30 degrees is painless. Negative FADIR. The left knee was examined. ROM 0-105,. INcision c/d/i I reviewed x-rays from [facility] from both knees. L knee xrays demonstrate a l TKA in good position and alignment. Patient has severe arthritis of his right knee with complete joint space narrowing medially. Assessment and Plan Problem List (1) Bilateral knee pain: Status: Acute Plan: Patient is a 64-year-old male with bilateral knee pain and bilateral knee arthritis. He is doing well status post left total knee replacement. he should continue to work with physical therapy. Recommend knee cortisone injection as patient would like to proceed with conservative treatment at this time. The risks and benefits of the procedure were reviewed with the patient and patient gave verbal consent to continue with the procedure. Procedure: performed by Dr. Zamora Using sterile technique the Right knee was thoroughly prepped with alcohol, and approximately 1 cc of Depo-Medrol 80mg/mL and 4 cc of 0.2% ropivacaine was injected without resistance into the medial tibial femoral joint space. The patient tolerated the procedure. (2) Bilateral primary osteoarthritis of knee: Status: Acute Advanced Care Planning Discussion Advance care planning discussed with:: patient Office Procedures GNS Level of Care Nursing/Assessment Patient Status: Established Patient Nursing Assessment/Reassesment: Medication Reconciliation, Update PMH in EMR and Vital Signs Coordination of Care: Complex Care and Chronic Disease 1-5, Education Complex Pt/Fam, Consent,records obtained, informed consent, Results/Orders obtained and Staff clarify orders Special Needs: Language special needs Established Patient Charge Established Patient Point Assignment: 95 Established Patient Point Charge: EP Level 3 (80-115) Surgical Proc/IM SQ injection Minor Surgical Procedure: Yes (KNEE INJECTION) Medication Given Medication Given Medication Given: Yes Documented Dose Given: 1 Route: Infiitration Medication Given Medication Given Medication Given: Yes Documented Dose Given: 4 Route: Infiitration Office Meds methylprednisolone acetate 80 mg/mL suspension for injection Performing Provider: Neil Zamora MD Performing Location: [facility] Administered by: Neil Zamora MD on 07/14/25 14:40 Dose Route Admin Location Dispensed Lot Number Expiration Date Pack age [facility] [place] Spray Dyer 80 mg intra-articular 1 mL [id number] 09/18/26 [address]-5 [id number] [employer] ropivacaine (PF) 2 mg/mL (0.2 %) injection solution Performing Provider: Neil Zamora MD Performing Location: [facility] Administered by: Neil Zamora MD on 07/14/25 14:40 Dose Route Admin Location Dispensed Lot Number Expiration Date Pack age [facility] [place] Spray Dyer 20 mL Infiltration 20 mL [id number] 11/18/27 83836-625-93 [id number] [facility] Intake Visit Data Collection New Patient or Established: Established Patient (seen at [facility] within 3 years) Reason for Visit:: R KNEE INJECTION Seen by Clinical Staff ONLY (RN/MA): No Sde Required: Yes PCP or OBGYN visit in last 3 months: Yes Hx Now: No Do You Feel Safe at Home: Yes Authorities Contacted: N/A Questionairres Past Medical History Past Medical History Have you ever been diagnosed with any of the following: Neurological Problems Seizures: No Cardiology Problems Hypercholesterolemia: Yes Congestive Heart Failure: No Hypertension: Yes Respiratory Problems Chronic Obstructive Pulmonary Disease (COPD): No Sleep Apnea: Yes Smoking: No Smoking Exposure: No Stomache/Intestinal Problems Hepatitis: No Obesity: Yes Genital/Urinary Problems Renal Disease: No Kidney Stones: Yes Musculoskeletal Problems Arthritis: Yes Endocrine Problems Diabetes Mellitus Type 1: No Diabetes Mellitus Type 2: Yes Psychologic Problems Depression: Yes (no meds) Anxiety: Yes Other Problems Hospitalization: Yes Shingles: No Blood Transfusions: No Blood Transfusion Reaction: No Anesthesia Reactions: No Chicken Pox: Yes Measles: Yes Cancer: No Subjective Visit Visit for: follow up visit, knee (RIGHT) and injections Immunization / Flu Flu Vaccine in the Last 12 Months: Yes Flu Vaccine Exclusion Criteria: Already Received History of Present Illness Chief complaint: RIGHT KNEE INJECTION Date of 1st surgery (if applicable): 11/01/2024 Patient is a 63-year-old Male who is well-known to me. He is doing well and has minimal pain. He is doing well s/p L TKA. He would like to get his R knee replaced now. He has failed conservative treatment including multiple NSAIDs, and injections as well as home exercises. He wants to hold off on a knee replacement for now and wants a repeat injection Pain Pain level (0-10): 6 Pain duration: ALL DAY Pain location: inside (medial), outside (lateral), anterior and posterior Pain quality: aching Pain timing: increases with activity Associated signs & symptoms: none Ambulatory data Ambulatory device: none Treatments Improvement with previous injections: No Improvement with PT: No Improvement with NSAIDS: no Review of Systems Review of Systems: All systems negative unless otherwise noted in HPI.
[2025-07-14 14:38] VITALS: BP 167/91; PULSE 90; RESP 19; TEMP 36.7; O2SAT 95; BMI 41.3
== END 2025-07-14 14:45 | disposition home or self-care (01) ==
LOC: HODSRG 14:21
PROVIDERS: Supervising Provider Orthopaedic Surgery Adult Reconstructive Orthopaedic Surgery; Visit Provider Orthopaedic Surgery Adult Reconstructive Orthopaedic Surgery
DX: M25.561 Pain in right knee (principal); M25.562 Pain in left knee; M17.0 Bilateral primary osteoarthritis of knee; I10 Essential (primary) hypertension; E78.00 Pure hypercholesterolemia, unspecified; E11.9 Type 2 diabetes mellitus without complications
CPT/HCPCS: 20610; 99213; J1010; J2795; G0463